=== PATIENT | female | born 1985 | race Caucasian/White ===

== ENCOUNTER 2016-05-25 22:07 | Emergency (ER) | payer OTHER, BC ==
[2016-05-26] MEDS ORDERED: TRAMADOL 50 MG TAB ONE (00:01)
== END 2016-05-26 01:17 | disposition home or self-care (01) ==
LOC: ER 22:07
CPT/HCPCS: 70450

== ENCOUNTER 2016-06-04 02:09 | Emergency (ER) | payer BC | END 2016-06-04 05:15 | disposition home or self-care (01) | LOC: ER 02:09 | CPT/HCPCS: 36415; 71010; 80053; 82553; 83880; 84484; 85025 ==